=== PATIENT | male | born 1950 | race Caucasian/White ===

== ENCOUNTER 2018-02-06 11:04 | Emergency (ER) | payer BC, MEDICARE ==
[~2018-02-06] VITALS: Ht 172.7 cm; Wt 65.8 kg
[2018-02-06 12:59] VITALS: BP 111/68
--- NOTE | 2018-02-06 12:59 | NUR ---
Patient discharged to home in stable conditon. Written and verbal after care instructions given. Patient verbalizes understanding of instructions.
== END 2018-02-06 12:59 | disposition home or self-care (01) ==
LOC: ER 11:04
DX: M51.16 Intervertebral disc disorders with radiculopathy, lumbar region (principal); G20 Parkinson's disease; M48.061 Spinal stenosis, lumbar region without neurogenic claudication; R18.8 Other ascites
CPT/HCPCS: 72131; A4663

== ENCOUNTER 2018-11-18 10:30 | Inpatient (IN) | payer BC, MEDICARE, OTHER ==
[~2018-11-18] VITALS: Ht 172.7 cm; Wt 66.7 kg
[2018-11-18] MEDS ORDERED: IV NORMAL SALINE 1000 ML BAG IV ONE (10:45)
--- NOTE | 2018-11-18 10:45 | NUR ---
RECEIVED A 68 Y/O MALE PT A CASE OF SYNCOPE, FELL IN HIS HOUSE, CAME VIA AMBULANCE, PT IS ALERT OX3. BREATHING SPONTANEOUSLY. UPON ARRIVAL CONNCETED TO ECG MONITOR SHOWING SR. PT HAS A LT AC G18. SEEN BY MD ASSESSMENT DONE. 12 LEAD ECG DONE. SENT TO XRAY DEPT FOR CT SCAN OF THE HEAD
[2018-11-18 10:58] LABS: BASOPHILS # (AUTO) 0.1 K/uL (0.0-8.0); EOSINOPHILS # (AUTO) 0.2 K/uL (0.0-0.7); EOSINOPHILS % (AUTO) 2.4 % (0.0-7.0); HEMATOCRIT 35.2 % (36.7-47.1); LYMPHOCYTES # (AUTO) 2.2 K/uL (20.0-40.0); MEAN CORPUSCULAR HEMOGLOBIN 29.3 uug (23.8-33.4); MEAN CORPUSCULAR HGB CONC 34 g/dL (32.5-36.3); MEAN CORPUSCULAR VOLUME 86.1 fL (73.0-96.2); MONOCYTES # (AUTO) 0.4 K/uL (2.0-10.0); MONOCYTES % (AUTO) 4.3 % (0.0-11.0); NEUTROPHILS # (AUTO) 5.9 K/uL (1.8-8.9); NEUTROPHILS % (AUTO) 67.3 % (38.5-71.5); PLATELET COUNT (AUTO) 363 K/uL (152-348); RED BLOOD CELL COUNT(AUTO) 4.09 MIL/uL (4.06-5.63); WHITE BLOOD COUNT (AUTO) 8.8 K/uL (3.6-10.2)
[2018-11-18] MEDS ORDERED: CARBIDOPA PO (10:58)
[2018-11-18] MEDS ORDERED: SERT25TA PO (10:58)
[2018-11-18] MEDS ORDERED: ATOR10TA PO (10:58)
[2018-11-18 11:09] LABS: BILIRUBIN,DIRECT 0.1 mg/dL (0.0-0.2); BILIRUBIN,TOTAL 0.4 mg/dL (0.2-1.0); TOTAL PROTEIN, SERUM 7.1 g/dL (6.4-8.2)
--- NOTE | 2018-11-18 11:30 | NUR ---
PT SENT TO RADIOLOGY UNIT, CT SCAN DONE AND BACK TO ER.
--- NOTE | 2018-11-18 12:32 | NUR ---
SEEN BY MD PATIENT FOR ADMISSION UNDER THE CARE OF DR LICONA, FULL REPORT GIVEN TO MARIBELL CUI AND PATIENT FOR TRANSFER TO ROOM 317
[2018-11-18] MEDS ORDERED: [UNRECOGNIZED DRUG - OTHER] PO (13:09)
[2018-11-18] MEDS ORDERED: CARBIDOPA LEVODOPA PO (13:09)
[2018-11-18] MEDS ORDERED: AMANTADINE 100 MG CAPSULE PO (13:11)
[2018-11-18] MEDS ORDERED: ONDANSETRON 4 MG/2 ML VIAL IV PRN (13:15)
[2018-11-18] MEDS ORDERED: TEMAZEPAM 15 MG CAPSULE PO PRN (13:15)
[2018-11-18] MEDS ORDERED: ACETAMINOPHEN 325 MG TABLET PO PRN (13:15)
[2018-11-18] MEDS ORDERED: MAGNESIUM HYDROXIDE 30 ML LIQUID UDC PO PRN (13:15)
--- NOTE | 2018-11-18 14:05 | NUR ---
received from ER per yoel awake alert and oriented with c/o "passing out" at home, at bedside, tele applied, SR 80's, routine admission care rendered. Assessment done, noted surgical incision with sutures on the left upper chest- states had a deep brain stimulator implant this week at [facility], safety measures initiated, call light within reach
[2018-11-18] MEDS ORDERED: TEMAZEPAM 7.5 MG CAPSULE PO PRN (14:15)
[2018-11-18 15:07] VITALS: BP 142/80
--- NOTE | 2018-11-18 15:30 | NUR ---
seen by Dr Thapa with orders
[2018-11-18] MEDS ORDERED: [UNRECOGNIZED DRUG - OTHER] PO SCH (16:00)
[2018-11-18] MEDS ORDERED: CARBIDOPA LEVODOPA PO SCH (16:00)
[2018-11-18] MEDS: CEPHALEXIN MONOHYDRATE 500 MG PO SCH ×2 (16:20→21:09)
[2018-11-18] MEDS ORDERED: AMANTADINE 100 MG PO SCH (17:00)
[2018-11-18] MEDS: AMANTADINE HCL 100 MG CAPSULE PO SCH (17:36)
--- NOTE | 2018-11-18 18:30 | NUR ---
up to BR but no BM, offered warm prune juice, all needs attended and met, safety measures maintained, remains SR 80's, no dizziness noted, will continue to monitor closely, will endorse plan of care to next shift
--- NOTE | 2018-11-18 20:00 | NUR ---
Received patient awake alert & oriented no SOB denies chest pain. Sinus rhythm on the monitor. in room & stated patient is constipated x 3days.
[2018-11-18 20:01] VITALS: BP 146/86
[2018-11-18] MEDS ORDERED: DOCUSATE SODIUM 100 MG CAPSULE PO SCH (21:00)
[2018-11-18] MEDS ORDERED: ATORVASTATIN 10 MG TABLET PO SCH (21:00)
--- NOTE | 2018-11-18 21:30 | NUR ---
Routine night meds given. MOM provided for constipation. Hand tremors noted. Fall precaution observed, assisted to the bathroom PRN.
[2018-11-19] VITALS: BP 151/80
[2018-11-19 04:00] VITALS: BP 151/89
--- NOTE | 2018-11-19 06:00 | NUR ---
Patient rested well. No BM yet at this time. Tele sinus rhythm w/ stable vital signs.
[2018-11-19 06:44] LABS: BASOPHILS # (AUTO) 0.1 K/uL (0.0-8.0); EOSINOPHILS # (AUTO) 0.2 K/uL (0.0-0.7); HEMATOCRIT 34.2 % (36.7-47.1); HEMOGLOBIN 11.7 g/dL (12.5-16.3); LYMPHOCYTES # (AUTO) 1.7 K/uL (20.0-40.0); LYMPHOCYTES % (AUTO) 21.9 % (20.5-51.5); MEAN CORPUSCULAR HEMOGLOBIN 29.4 uug (23.8-33.4); MEAN CORPUSCULAR HGB CONC 34 g/dL (32.5-36.3); MEAN CORPUSCULAR VOLUME 85.6 fL (73.0-96.2); MONOCYTES # (AUTO) 0.5 K/uL (2.0-10.0); MONOCYTES % (AUTO) 5.9 % (0.0-11.0); NEUTROPHILS # (AUTO) 5.4 K/uL (1.8-8.9); NEUTROPHILS % (AUTO) 68.2 % (38.5-71.5); PLATELET COUNT (AUTO) 369 K/uL (152-348); RED BLOOD CELL COUNT(AUTO) 3.99 MIL/uL (4.06-5.63)
[2018-11-19] MEDS ORDERED: PANTOPRAZOLE SODIUM 40 MG TABLET.DR PO SCH (07:00)
--- NOTE | 2018-11-19 07:00 | NUR ---
Patient aao3, COOPERATIVE, FAMILY AT BED SIDE, Tele sinus rhythm w/ stable vital signs.
[2018-11-19 07:08] LABS: THYROID STIMULATING HORMONE 1.534 mIU/mL (0.358-3.740)
[2018-11-19 07:37] LABS: BILIRUBIN,TOTAL 0.3 mg/dL (0.2-1.0); CREATININE 0.9 mg/dL (0.6-1.3); MAGNESIUM 2.1 mg/dL (1.8-2.4); PHOSPHOROUS 3.9 mg/dL (2.5-4.9); POTASSIUM 4.1 mmol/L (3.5-5.1); TOTAL PROTEIN, SERUM 6.8 g/dL (6.4-8.2)
[2018-11-19] MEDS: CEPHALEXIN MONOHYDRATE 500 MG PO SCH (08:31)
[2018-11-19] MEDS: AMANTADINE HCL 100 MG CAPSULE PO SCH (08:31)
[2018-11-19] MEDS ORDERED: Medication Not On Formulary EA (Sertraline Hcl (Zoloft) 1 TAB) PO SCH (09:00)
[2018-11-19] MEDS ORDERED: SERTRALINE HCL 50 MG TABLET PO SCH (09:00)
[2018-11-19 11:30] VITALS: BP 152/78
== END 2018-11-19 13:34 | disposition home or self-care (01) | DRG 56 ==
LOC: ER 10:30 → TELE3 13:43
PROVIDERS: ADMIT Internal Medicine; ATTEND Internal Medicine
DX: G20 Parkinson's disease (principal); G93.6 Cerebral edema; D68.59 Other primary thrombophilia; G90.8 Other disorders of autonomic nervous system; I95.1 Orthostatic hypotension; Z96.89 Presence of other specified functional implants; E78.5 Hyperlipidemia, unspecified; Z79.899 Other long term (current) drug therapy; D50.9 Iron deficiency anemia, unspecified; R32 Unspecified urinary incontinence; Z96.652 Presence of left artificial knee joint; Z98.42 Cataract extraction status, left eye; Z98.41 Cataract extraction status, right eye; E86.0 Dehydration; F32.9 Major depressive disorder, single episode, unspecified; G89.29 Other chronic pain; M54.30 Sciatica, unspecified side
CPT/HCPCS: 36415; 70030-TC; 70450; 71045; 83550; 83735; 84100; 84443; 85025; 85730; 93005; 93880; A4663; G0378; J7030